=== PATIENT | female | born 1940 | race Caucasian/White ===

== ENCOUNTER 2019-11-08 13:42 | Inpatient (IN) ==
[2019-11-08] MEDS ORDERED: *HR* Dextrose 50 % in Water (Vial) 50 ML VIAL IVP PRN (17:30)
[2019-11-08] MEDS ORDERED: D5% in Water 1,000 ML IVC PRN (17:30)
[2019-11-08] MEDS ORDERED: Dextrose Gel 15 GM/37.5 ML TUBE PO PRN ×2 (17:30)
[2019-11-08] MEDS ORDERED: Naloxone 0.4 MG/ML INJ IVP PRN (17:32)
[2019-11-08] MEDS: lisinopriL 20 MG TABLET PO SCH (21:46)
[2019-11-08] MEDS: Gabapentin 400 MG CAPSULE PO SCH (21:46)
[2019-11-08] MEDS: Insulin LISPRO 300 UNITS/3 ML VIAL SQ SCH (22:06)
[2019-11-08] MEDS: Nystatin POWDER 30 GM BOTTLE TP SCH (22:07)
[2019-11-09] MEDS: Famotidine 20 MG TABLET PO SCH (06:19)
[2019-11-09] MEDS: *HR* Heparin 5,000 UNIT/ML VIAL SQ SCH ×2 (06:21→17:32)
[2019-11-09] MEDS: Insulin LISPRO 300 UNITS/3 ML VIAL SQ SCH ×4 (08:13→21:07)
[2019-11-09] MEDS: hydroCHLOROthiazide 25 MG TABLET PO SCH (08:15)
[2019-11-09] MEDS: Magnesium Oxide 400 MG TABLET PO SCH (08:15)
[2019-11-09] MEDS: Gabapentin 400 MG CAPSULE PO SCH ×4 (08:15→20:56)
[2019-11-09] MEDS: lisinopriL 20 MG TABLET PO SCH ×2 (08:15→20:56)
[2019-11-09] MEDS: amLODIPine 5 MG TABLET PO SCH (08:15)
[2019-11-09] MEDS: Nystatin POWDER 30 GM BOTTLE TP SCH ×3 (08:16→21:02)
[2019-11-10] MEDS: *HR* Heparin 5,000 UNIT/ML VIAL SQ SCH ×2 (06:03→18:19)
[2019-11-10] MEDS: Famotidine 20 MG TABLET PO SCH (06:04)
[2019-11-10] MEDS: hydroCHLOROthiazide 25 MG TABLET PO SCH (09:13)
[2019-11-10] MEDS: Gabapentin 400 MG CAPSULE PO SCH ×4 (09:13→21:07)
[2019-11-10] MEDS: Magnesium Oxide 400 MG TABLET PO SCH (09:14)
[2019-11-10] MEDS: amLODIPine 5 MG TABLET PO SCH (09:14)
[2019-11-10] MEDS: lisinopriL 20 MG TABLET PO SCH ×2 (09:14→21:07)
[2019-11-10] MEDS: Nystatin POWDER 30 GM BOTTLE TP SCH ×3 (09:15→21:10)
[2019-11-10] MEDS: Acetaminophen 325 MG TABLET PO PRN ×2 (09:15→21:11)
[2019-11-10] MEDS: Insulin LISPRO 300 UNITS/3 ML VIAL SQ SCH ×4 (09:16→21:10)
[2019-11-11] MEDS: *HR* Heparin 5,000 UNIT/ML VIAL SQ SCH ×2 (06:41→17:50)
[2019-11-11] MEDS: Famotidine 20 MG TABLET PO SCH (06:42)
[2019-11-11] MEDS: Acetaminophen 325 MG TABLET PO PRN ×3 (06:42→21:30)
[2019-11-11] MEDS: amLODIPine 5 MG TABLET PO SCH (08:19)
[2019-11-11] MEDS: hydroCHLOROthiazide 25 MG TABLET PO SCH (08:20)
[2019-11-11] MEDS: Insulin LISPRO 300 UNITS/3 ML VIAL SQ SCH ×4 (08:20→21:33)
[2019-11-11] MEDS: Gabapentin 400 MG CAPSULE PO SCH ×4 (08:20→21:30)
[2019-11-11] MEDS: Magnesium Oxide 400 MG TABLET PO SCH (08:20)
[2019-11-11] MEDS: lisinopriL 20 MG TABLET PO SCH ×2 (08:20→21:30)
[2019-11-11] MEDS: Nystatin POWDER 30 GM BOTTLE TP SCH ×4 (08:21→21:32)
[2019-11-12] MEDS: Famotidine 20 MG TABLET PO SCH (02:42)
[2019-11-12] MEDS: *HR* Heparin 5,000 UNIT/ML VIAL SQ SCH ×2 (06:08→17:41)
[2019-11-12] MEDS: Insulin LISPRO 300 UNITS/3 ML VIAL SQ SCH ×4 (08:47→20:25)
[2019-11-12] MEDS: Acetaminophen 325 MG TABLET PO PRN ×2 (09:45→16:07)
[2019-11-12] MEDS: lisinopriL 20 MG TABLET PO SCH (09:46)
[2019-11-12] MEDS: amLODIPine 5 MG TABLET PO SCH (09:46)
[2019-11-12] MEDS: Gabapentin 400 MG CAPSULE PO SCH ×5 (09:46→20:41)
[2019-11-12] MEDS: Magnesium Oxide 400 MG TABLET PO SCH (09:46)
[2019-11-12] MEDS: hydroCHLOROthiazide 25 MG TABLET PO SCH (09:46)
[2019-11-12] MEDS: Nystatin POWDER 30 GM BOTTLE TP SCH ×3 (09:46→20:36)
[2019-11-12] MEDS: Ergocalciferol (VIT D2) 50,000 UNIT (1.25MG) CAP PO SCH (11:08)
[2019-11-12 15:03] LABS: Basophils % 0.4 %; Eosinophils # 0.1 K/mcL (0.0-0.6); Eosinophils % 1.9 %; Hematocrit 31.9 % (35.3-44.9); Hemoglobin 9.9 g/dL (11.5-15.4); Immature Granulocytes % 0.4 % (0-4); Lymphocytes # 0.6 K/mcL (0.6-4.6); Lymphocytes % 9.2 %; Mean Corpuscular Hemoglobin 25.8 pg (28.0-33.3); Mean Corpuscular Volume 83.3 fL (83.0-100.0); Mean Platelet Volume 9.4 fL (9.4-12.4); Monocytes # 0.5 K/mcL (0.0-1.3); Monocytes % 7.4 %; Neutrophils # 5.6 K/mcL (1.6-8.9); Platelet Count 388 K/mcL (140-400); Red Blood Count 3.83 M/mcL (3.82-4.97); Red Cell Distribution Width 13.4 % (11.5-14.5); Segmented Neutrophils % 80.7 %
[2019-11-12 15:20] LABS: Calcium 10.3 mg/dL (8.6-10.3); Potassium 4.9 mEq/L (3.5-5.1)
[2019-11-12] MEDS ORDERED: 0.9 % Sodium Chloride 500 ML IVC ONE (19:44)
[2019-11-12] MEDS: Methyl Salicylate/Menthol 57 APPL/57 GM TUBE TP PRN (20:39)
[2019-11-12 22:42] LABS: Bilirubin,Urine Negative (Negative); Blood,Urine Trace-lysed (Negative); Clarity,Urine Slightly Cloudy (Clear); Glucose,Urine (UA) Normal (Normal); Ketones,Urine Negative (Negative); Leukocyte Esterase,Urine Moderate (Negative); Nitrite,Urine Negative (Negative); Protein,Urine Negative (Neg-Trace); Specific Gravity,Urine 1.015 (1.010-1.025); Urobilinogen,Urine Normal (Normal)
[2019-11-12 22:53] LABS: Color,Urine Yellow (Yellow)
[2019-11-12 22:54] LABS: Bacteria,Urine Few per hpf (None-Few); RBC,Urine 0-3 per hpf (0-3); Squamous Epithelial Cell,Urine Few per hpf (None-Few)
[2019-11-12] MEDS: 0.9 % Sodium Chloride 1,000 ML IVC SCH (23:14)
[2019-11-13] MEDS: *HR* Heparin 5,000 UNIT/ML VIAL SQ SCH ×2 (04:50→17:29)
[2019-11-13] MEDS: 0.9 % Sodium Chloride 1,000 ML IVC SCH (04:50)
[2019-11-13 06:23] LABS: Basophils % 0.3 %; Eosinophils # 0.1 K/mcL (0.0-0.6); Eosinophils % 2.4 %; Hematocrit 29.8 % (35.3-44.9); Hemoglobin 9.3 g/dL (11.5-15.4); Immature Granulocytes % 0.5 % (0-4); Lymphocytes # 0.5 K/mcL (0.6-4.6); Lymphocytes % 8.1 %; Mean Corpuscular HGB Conc 31.2 g/dL (31.6-35.5); Mean Corpuscular Hemoglobin 25.7 pg (28.0-33.3); Mean Corpuscular Volume 82.3 fL (83.0-100.0); Mean Platelet Volume 9.1 fL (9.4-12.4); Monocytes # 0.5 K/mcL (0.0-1.3); Monocytes % 8.3 %; Neutrophils # 4.6 K/mcL (1.6-8.9); Platelet Count 327 K/mcL (140-400); Red Blood Count 3.62 M/mcL (3.82-4.97); Red Cell Distribution Width 13.3 % (11.5-14.5); Segmented Neutrophils % 80.4 %; White Blood Count 5.8 K/mcL (4.3-11.1)
[2019-11-13 06:58] LABS: Calcium 9.8 mg/dL (8.6-10.3); Potassium 4.1 mEq/L (3.5-5.1)
[2019-11-13] MEDS: Insulin LISPRO 300 UNITS/3 ML VIAL SQ SCH ×4 (08:26→21:03)
[2019-11-13] MEDS: hydroCHLOROthiazide 25 MG TABLET PO SCH (08:34)
[2019-11-13] MEDS: lisinopriL 20 MG TABLET PO SCH (08:34)
[2019-11-13] MEDS: Magnesium Oxide 400 MG TABLET PO SCH (08:36)
[2019-11-13] MEDS: Gabapentin 400 MG CAPSULE PO SCH ×4 (08:36→21:09)
[2019-11-13] MEDS: Nystatin POWDER 30 GM BOTTLE TP SCH ×3 (08:36→21:10)
[2019-11-13] MEDS ORDERED: lisinopriL 20 MG TABLET PO SCH (09:00)
[2019-11-13] MEDS: Acetaminophen 325 MG TABLET PO PRN ×2 (10:36→21:09)
[2019-11-14] MEDS: *HR* Heparin 5,000 UNIT/ML VIAL SQ SCH ×2 (04:01→17:25)
[2019-11-14] MEDS: Gabapentin 400 MG CAPSULE PO SCH ×4 (09:23→20:51)
[2019-11-14] MEDS: lisinopriL 20 MG TABLET PO SCH (09:23)
[2019-11-14] MEDS: Acetaminophen 325 MG TABLET PO PRN ×2 (09:23→20:51)
[2019-11-14] MEDS: Magnesium Oxide 400 MG TABLET PO SCH (09:24)
[2019-11-14] MEDS: hydroCHLOROthiazide 25 MG TABLET PO SCH (09:24)
[2019-11-14] MEDS: Insulin LISPRO 300 UNITS/3 ML VIAL SQ SCH ×4 (09:26→20:49)
[2019-11-14] MEDS: Nystatin POWDER 30 GM BOTTLE TP SCH ×3 (09:26→20:51)
[2019-11-15] MEDS: *HR* Heparin 5,000 UNIT/ML VIAL SQ SCH ×2 (05:19→17:26)
[2019-11-15] MEDS: Insulin LISPRO 300 UNITS/3 ML VIAL SQ SCH ×4 (07:33→20:54)
[2019-11-15] MEDS: Gabapentin 400 MG CAPSULE PO SCH ×4 (09:33→20:50)
[2019-11-15] MEDS: lisinopriL 20 MG TABLET PO SCH (09:33)
[2019-11-15] MEDS: hydroCHLOROthiazide 25 MG TABLET PO SCH (09:33)
[2019-11-15] MEDS: Magnesium Oxide 400 MG TABLET PO SCH (09:34)
[2019-11-15] MEDS: Nystatin POWDER 30 GM BOTTLE TP SCH ×3 (09:34→20:54)
[2019-11-15] MEDS: Sulfamethoxazole/Trimeth DS 1 EACH TABLET PO SCH ×2 (11:56→20:50)
[2019-11-15] MEDS: Acetaminophen 325 MG TABLET PO PRN ×2 (14:25→20:51)
[2019-11-15] MEDS: TRESIBA SQ SCH (20:50)
[2019-11-16] MEDS: *HR* Heparin 5,000 UNIT/ML VIAL SQ SCH ×2 (06:33→17:46)
[2019-11-16] MEDS: Insulin LISPRO 300 UNITS/3 ML VIAL SQ SCH ×4 (08:28→22:12)
[2019-11-16] MEDS: lisinopriL 20 MG TABLET PO SCH (08:35)
[2019-11-16] MEDS: Gabapentin 400 MG CAPSULE PO SCH (09:30)
[2019-11-16] MEDS: Magnesium Oxide 400 MG TABLET PO SCH (09:30)
[2019-11-16] MEDS: hydroCHLOROthiazide 25 MG TABLET PO SCH (09:30)
[2019-11-16] MEDS: Acetaminophen 325 MG TABLET PO PRN ×2 (09:31→22:13)
[2019-11-16] MEDS: Sulfamethoxazole/Trimeth DS 1 EACH TABLET PO SCH ×2 (09:31→22:12)
[2019-11-16] MEDS: Nystatin POWDER 30 GM BOTTLE TP SCH ×3 (09:35→22:12)
[2019-11-16] MEDS: TRESIBA SQ SCH (09:35)
[2019-11-16] MEDS: INSULIN DEGLUDEC SQ SCH (22:13)
[2019-11-17] MEDS: *HR* Heparin 5,000 UNIT/ML VIAL SQ SCH ×2 (05:22→18:04)
[2019-11-17] MEDS: Sulfamethoxazole/Trimeth DS 1 EACH TABLET PO SCH ×2 (08:08→23:20)
[2019-11-17] MEDS: Acetaminophen 325 MG TABLET PO PRN ×2 (08:08→18:04)
[2019-11-17] MEDS: Gabapentin 400 MG CAPSULE PO SCH ×2 (08:09→23:21)
[2019-11-17] MEDS: Insulin LISPRO 300 UNITS/3 ML VIAL SQ SCH ×4 (08:11→23:21)
[2019-11-17] MEDS: Magnesium Oxide 400 MG TABLET PO SCH (10:53)
[2019-11-17] MEDS: TRESIBA SQ SCH (10:53)
[2019-11-17] MEDS: Nystatin POWDER 30 GM BOTTLE TP SCH ×3 (10:56→23:21)
[2019-11-17] MEDS: INSULIN DEGLUDEC SQ SCH (23:21)
[2019-11-18] MEDS: *HR* Heparin 5,000 UNIT/ML VIAL SQ SCH ×2 (05:40→17:44)
[2019-11-18] MEDS: Acetaminophen 325 MG TABLET PO PRN (05:41)
[2019-11-18] MEDS: Insulin LISPRO 300 UNITS/3 ML VIAL SQ SCH ×3 (08:00→20:08)
[2019-11-18] MEDS: Magnesium Oxide 400 MG TABLET PO SCH (10:35)
[2019-11-18] MEDS: Gabapentin 400 MG CAPSULE PO SCH ×2 (10:35→20:10)
[2019-11-18] MEDS: Nystatin POWDER 30 GM BOTTLE TP SCH ×3 (10:35→20:10)
[2019-11-18] MEDS: Sulfamethoxazole/Trimeth DS 1 EACH TABLET PO SCH ×2 (10:35→20:10)
[2019-11-18] MEDS: TRESIBA SQ SCH (10:36)
[2019-11-18] MEDS: INSULIN DEGLUDEC SQ SCH (20:11)
[2019-11-19] MEDS: Acetaminophen 325 MG TABLET PO PRN (02:33)
[2019-11-19] MEDS: Methyl Salicylate/Menthol 57 APPL/57 GM TUBE TP PRN (02:34)
[2019-11-19] MEDS: *HR* Heparin 5,000 UNIT/ML VIAL SQ SCH ×2 (05:46→17:42)
[2019-11-19] MEDS: Insulin LISPRO 300 UNITS/3 ML VIAL SQ SCH ×5 (08:49→19:54)
[2019-11-19] MEDS: Sulfamethoxazole/Trimeth DS 1 EACH TABLET PO SCH ×2 (08:57→19:54)
[2019-11-19] MEDS: Gabapentin 400 MG CAPSULE PO SCH ×3 (08:57→19:54)
[2019-11-19] MEDS: Magnesium Oxide 400 MG TABLET PO SCH (08:57)
[2019-11-19] MEDS: Nystatin POWDER 30 GM BOTTLE TP SCH ×3 (09:06→19:54)
[2019-11-19] MEDS: Ergocalciferol (VIT D2) 50,000 UNIT (1.25MG) CAP PO SCH (09:06)
[2019-11-19] MEDS: TRESIBA SQ SCH (09:07)
[2019-11-19] MEDS: INSULIN DEGLUDEC SQ SCH (19:55)
[2019-11-20 05:27] LABS: Basophils % 0.3 %; Eosinophils # 0.2 K/mcL (0.0-0.6); Eosinophils % 2.7 %; Hematocrit 26.6 % (35.3-44.9); Hemoglobin 8.2 g/dL (11.5-15.4); Immature Granulocytes % 0.5 % (0-4); Lymphocytes # 0.7 K/mcL (0.6-4.6); Lymphocytes % 11.9 %; Mean Corpuscular HGB Conc 30.8 g/dL (31.6-35.5); Mean Corpuscular Hemoglobin 25.5 pg (28.0-33.3); Mean Corpuscular Volume 82.9 fL (83.0-100.0); Mean Platelet Volume 9.1 fL (9.4-12.4); Monocytes # 0.5 K/mcL (0.0-1.3); Monocytes % 8.9 %; Neutrophils # 4.5 K/mcL (1.6-8.9); Platelet Count 369 K/mcL (140-400); Red Blood Count 3.21 M/mcL (3.82-4.97); Red Cell Distribution Width 13.7 % (11.5-14.5); Segmented Neutrophils % 75.7 %
[2019-11-20 05:37] LABS: Potassium 5.3 mEq/L (3.5-5.1)
[2019-11-20] MEDS: *HR* Heparin 5,000 UNIT/ML VIAL SQ SCH ×2 (05:49→17:15)
[2019-11-20] MEDS: Gabapentin 400 MG CAPSULE PO SCH ×3 (09:35→20:37)
[2019-11-20] MEDS: Magnesium Oxide 400 MG TABLET PO SCH (09:35)
[2019-11-20] MEDS: Acetaminophen 325 MG TABLET PO PRN ×2 (09:35→20:37)
[2019-11-20] MEDS: Sulfamethoxazole/Trimeth DS 1 EACH TABLET PO SCH ×2 (09:35→20:37)
[2019-11-20] MEDS: Nystatin POWDER 30 GM BOTTLE TP SCH ×3 (09:36→20:38)
[2019-11-20] MEDS: Insulin LISPRO 300 UNITS/3 ML VIAL SQ SCH ×4 (09:39→20:38)
[2019-11-20] MEDS: TRESIBA SQ SCH (09:42)
[2019-11-20 13:39] LABS: % Iron Saturation 6 % (15-50); Iron 13 mcg/dL (50-170); Transferrin 160 mg/dL (203-362)
[2019-11-20] MEDS: INSULIN DEGLUDEC SQ SCH (20:38)
[2019-11-21] MEDS: *HR* Heparin 5,000 UNIT/ML VIAL SQ SCH (05:44)
[2019-11-21] MEDS: Acetaminophen 325 MG TABLET PO PRN (05:45)
[2019-11-21 09:00] VITALS: BP 120/53
[2019-11-21] MEDS: Insulin LISPRO 300 UNITS/3 ML VIAL SQ SCH ×2 (09:30→13:24)
[2019-11-21] MEDS: TRESIBA SQ SCH (09:32)
[2019-11-21] MEDS: Magnesium Oxide 400 MG TABLET PO SCH (09:37)
[2019-11-21] MEDS: Sulfamethoxazole/Trimeth DS 1 EACH TABLET PO SCH (09:37)
[2019-11-21] MEDS: Gabapentin 400 MG CAPSULE PO SCH (09:37)
[2019-11-21] MEDS: Nystatin POWDER 30 GM BOTTLE TP SCH (13:24)
== END 2019-11-21 14:00 | DRG 945 ==
LOC: INPGRE 17:46
PROVIDERS: ADMIT Family Medicine; ATTEND Family Medicine